=== PATIENT | female | born 1940 | race Caucasian/White ===

== ENCOUNTER 2019-08-27 10:13 | Outpatient (CLI) | payer MEDICARE, SELFPAY ==
--- NOTE | ~2019-08-27 | CT_ITS ---
EXAMINATION: CT abdomen pelvis wo/w con EXAM DATE: 08/27/2019 12:01 INDICATION: Gross hematuria. Frequency. TECHNIQUE: Spiral CT of the abdomen and pelvis was performed without contrast. The patient was then injected with small bolus intravenous Omnipaque 350, followed by delay of approximately 10 minutes to allow collecting system to opacify. A post contrast scan abdomen and pelvis was performed during inj ection of remaining contrast. A total of 130 cc intravenous contrast was administered. The dose-jaret th product (DLP) for this examination was 2321.47 mGy-cm. The exposure was tailored according to pat ient size (auto mA exposure control), and iterative reconstruction (ASIR) was used as additional dose reduction technique. There is no prior study for comparison. FINDINGS: There is mild bilateral renal atrophy. There is no hydronephrosis or nephrolithiasis. Scat tered subcentimeter homogeneous hypodense lesions likely cysts and hemorrhagic cysts. No suspicious r enal lesions. The kidneys enhance symmetrically. The calyces and opacified portions of ureters are unremarkable, without filling defects or focal suspicious strictures. The bladder is unremarkable. There is a 3.5 cm fibroid in the uterine fundus. There is hepatomegaly and nodular contour consistent with cirrhosis. There are multiple scattered [place] graphic shaped low density regions, many ill-defined scattered throughout the liver, could be regener ating nodules. These do not appear particularly masslike but liver MRI examination should be obtained for better characterization. There are perisplenic varices, indicating likelihood of portal hyperten eladio. Spleen, pancreas, adrenal glands are unremarkable. Patient has had cholecystectomy. Some bilia ry duct dilation which is common finding following cholecystectomy. There is no retroperitoneal or p elvic lymphadenopathy. There is moderate scattered arteriosclerotic disease. Patient has probably had appendectomy. Possible anterior abdominal wall hernia repair. The stomach a nd small bowel are unremarkable. There is expected amount of colonic stool. There is mild sigmoid co lonic diverticulosis. There is no adjacent inflammatory change to suggest diverticulitis. No free i ntraperitoneal gas. There is cardiomegaly and linear left basilar atelectasis. There are no osteobl astic or osteolytic lesions identified. There is advanced lower lumbar facet arthropathy. IMPRESSION: 1. Mild bilateral renal atrophy. Subcentimeter renal lesions likely cysts and hemorrhagic cysts. Fi broid. 2. Cirrhosis, portal hypertension. Liver regions probably regenerating nodules but consider better c haracterization with MRI examination. 3. Mild sigmoid diverticulosis. 4. Left basilar subsegmental atelectasis. 5. Cardiomegaly. 6. Surgical changes. Reviewed, dictated and finalized at location A. IMPRESSION: 1. Mild bilateral renal atrophy. Subcentimeter renal lesions likely cysts and hemorrhagic cysts. Fibroid. 2. Cirrhosis, portal hypertension. Liver regions probably regenerating nodules but consider better characterization with MRI examination. 3. Mild sigmoid diverticulosis. 4. Left basilar subsegmental atelectasis. 5. Cardiomegaly. 6. Surgical changes.
[2019-08-27 11:35] LABS: Estimated Glomerular Filt Rate > 60
== END 2019-08-27 10:14 | disposition home or self-care (01) ==
PROVIDERS: PCP Family Medicine
DX: N26.1 Atrophy of kidney (terminal) (principal); K74.60 Unspecified cirrhosis of liver; J98.11 Atelectasis; K57.90 Diverticulosis of intestine, part unspecified, without perforation or abscess without bleeding; I51.7 Cardiomegaly; R31.0 Gross hematuria; R35.0 Frequency of micturition
CPT/HCPCS: 36415; 74178; Q9967

== ENCOUNTER 2020-08-06 14:49 | Emergency (ER) | payer MEDICARE, BC, SELFPAY ==
--- NOTE | ~2020-08-06 | US_ITS ---
EXAMINATION: US venous doppler [facility] EXAM DATE: 08/06/2020 15:36 INDICATION: Left calf swelling. TECHNIQUE: Multiple grayscale, color flow and Doppler images of the left lower extremity deep venous system were obtained and reviewed. Comparison is made to prior examination from 04/24/2015. FINDINGS: The left common femoral, femoral and profunda veins demonstrate normal color flow, respirat ory variation, augmentation and compressibility. Compressibility, color flow confirmed within the le ft popliteal, posterior tibial, peroneal, and greater saphenous veins. IMPRESSION: 1. No left lower extremity deep venous thrombosis. Reviewed, dictated and finalized at location A.
[2020-08-06 14:59] VITALS: BP 123/96; PULSE 96; RESP 17; TEMP 36.1; O2SAT 96
[2020-08-06 15:12] LABS: Basophils Absolute Auto 0.1 K/mm3 (0.0-0.1); Basophils Percent Auto 0.5 % (0.2-1.2); Eosinophils Absolute Auto 0.3 K/mm3 (0-0.3); Eosinophils Percent Auto 2.5 % (0-4.4); Hematocrit 43.3 % (37.0-47.0); Hemoglobin 13.9 g/dL (12.0-15.0); Immature Granulocyte Absolute 0.11 K/mm3 (0.00-0.031); Immature Granulocyte Percent A 0.9 % (0-0.5); Lymphocytes Absolute Auto 2.78 K/mm3 (0.9-3.2); Lymphocytes Percent Auto 22.8 % (18.3-44.2); Mean Corpuscular HGB Conc 32.1 g/dl (32-36); Mean Corpuscular Hemoglobin 29.8 pg (26-34); Mean Corpuscular Volume 92.9 fl (80-100); Mean Platelet Volume 9.6 fl (7.4-10.4); Monocytes Absolute Auto 0.9 K/mm3 (0.1-0.6); Monocytes Percent Auto 7.2 % (2.6-8.5); Neutrophils Percent Auto 66.1 % (45.5-73.1); Platelet Count Result 327 k/mm3 (150-375); Red Blood Count 4.66 M/mm3 (4.2-5.4); Red Cell Distribution Width 13.4 % (11.5-14.5); White Blood Count 12.2 K/mm3 (4.5-10.0)
--- NOTE | 2020-08-06 15:13 | PC.NURSE ---
Pt to ultrasound.
[2020-08-06 15:24] LABS: Anion Gap 6 mmol/L (8-16); Blood Urea Nitrogen 19 mg/dL (7-17); Calcium 9.7 mg/dL (8.4-10.2); Carbon Dioxide 31 mmol/L (22-30); Chloride 102 mmol/L (98-107); Estimated CRCL calculation 52 ml/min; Estimated Glomerular Filt Rate 60; Glucose 164 mg/dL (65-105); Potassium 3.9 mmol/L (3.4-5.0); Sodium 139 mmol/L (137-145)
[2020-08-06 15:25] LABS: INR 2.1; Prothrombin Time 24.5 Seconds (11.1-14.7)
--- NOTE | 2020-08-06 15:45 | PC.NURSE ---
Dr. Trinh at bedside for pt assessment.
--- NOTE | 2020-08-06 15:50 | ED.EXTPRO ---
HPI - Extremity Problem General Chief complaint: Extremity Problem,Nontraumatic Stated complaint: left leg pain Time Seen by Provider: 08/06/20 15:19 Source: RN notes reviewed History of Present Illness HPI Narrative: Patient presents emergency department from home for left lower extremity swelling. Patient states she is been having swelling her left lower extremity and she goes to physical therapy and they recommended she follow-up to ensure that she not have a blood clot patient states her left leg is always more swollen than the right leg since having varicose vein surgery numerous years ago. She states she is supposed be wearing compression stockings daily but has a hard time getting them up and only has been wearing them intermittently she denies any fever chills chest pain shortness of breath or any other symptoms she denies any trauma or injury to the leg denies any calf pain she is on Coumadin for A. fib Related Data Home Medications Medication Instructions Recorded Confirmed cetirizine 10 mg tablet 5 mg PO DAILY PRN 02/21/19 diltiazem HCl 30 mg tablet 30 mg PO TID 02/21/19 metoprolol succinate 50 mg 75 mg PO DAILY tablet 02/21/19 tablet,extended release 24 hr omeprazole 40 mg capsule,delayed 40 mg PO DAILY 02/21/19 release tiotropium 2.5 mcg-olodaterol 2.5 2 puff INHALATION DAILY 02/21/19 mcg/actuation mist for inhalation warfarin 5 mg tablet 10 mg PO DAILY tablet 02/21/19 Allergies Allergy/AdvReac Type Severity Reaction Status Date / Time Penicillins Allergy Unknown Unknown Verified 08/06/20 15:13 metformin AdvReac Diarrhea Verified 08/06/20 15:13 Review of Systems Review of Systems: Narrative: Gen.: Denies fevers or chills Respiratory: Denies shortness of breath or cough CV: Denies chest pain or palpitations Musculoskeletal: Denies back pain reports leg swelling Neuro: Denies numbness, tingling, weakness or focal weakness Skin: Denies rash Except as documented, all other systems reviewed and negative PENDING SALE TO [facility] Past Medical History Medical History (Updated 08/06/20 @ 15:53 by Delmar Trinh, ) Adult BMI 36.0-36.9 kg/sq m Anxiety BMI 35.0-35.9,adult Essential hypertension Unspecified atrial fibrillation Family History Family History Mother Hypertension Family history of diabetes mellitus in first degree relative Family history of pancreatic cancer Acute myocardial infarction Sibling Family history of diabetes mellitus in first degree relative Acute myocardial infarction Grandparent Diabetes mellitus Social History Social History Smoking status: Never smoker Second hand tobacco smoke exposure: No Alcohol intake: never Substance use: never Substance use type: does not use Gender identity (if verbalized by the patient): Female Exam Narrative: Exam Narrative: APPEARANCE: No acute distress, nontoxic, resting in bed Eyes: EOMI HEENT: Normocephalic, atraumatic, RESPIRATORY: No respiratory distress MUSCULOSKELETAl: Left lower extremity has 3+ edema in the right lower extremity with 2+ edema there is no tenderness of the left knee or ankle full range of motion of both no calf tenderness dorsalis pedis pulse 2+ neurovascular intact NEURO: Awake and alert. Following commands, speech normal, no focal deficits SKIN:: Warm, dry. Normal Color no rash or lesions Course Course Emergency Course: Discussed with patient results of workup and diagnosis. Discussed need for follow-up with primary care, proper use of medication, and reasons to return to the emergency department. Patient understands and agrees to current treatment plan discussed with patient wearing compression stockings Vital Signs Vital signs: Vital Signs Temperature 97.0 F L 08/06/20 14:59 Pulse Rate 96 08/06/20 14:59 Respiratory Rate 08/06/20 14:59 Blood Pressure 123/96 H 08/06/20 14:59 Pulse Oxi
== END 2020-08-06 16:00 | disposition home or self-care (01) ==
PROVIDERS: Physician Assistant; Emergency Provider Emergency Medicine; PCP Family Medicine
DX: R60.0 Localized edema (principal); I10 Essential (primary) hypertension; I48.91 Unspecified atrial fibrillation; F41.9 Anxiety disorder, unspecified
CPT/HCPCS: 36415; 80048; 85025; 85610; 85730; 93971; 99284

== ENCOUNTER 2020-08-22 14:10 | Emergency (ER) | payer MEDICARE, BC, SELFPAY ==
--- NOTE | 2020-08-22 14:18 | ED.WOUNDLAC ---
HPI - Wound/Laceration General Chief Complaint: Wound/Laceration Stated Complaint: laceration Source: patient and RN notes reviewed Limitations: no limitations History of Present Illness HPI narrative: The patient, who is diabetic on several meds, presents with wound check. Patient states she believes she needs a tetanus shot for a skin avulsion which occurred yesterday. Patient's thinks her last tetanus shot was more than 10 years ago; and she had small avulsion/deep scrape on her left arm yesterday afternoon, on an unknown home furnishing. This resulted in a well approximated, small 2- 3 mm skin defect to her left elbow area. No redness, discharge, fever, bleeding [she is on Coumadin] Related Data Home Medications Medication Instructions Recorded Confirmed cetirizine 10 mg tablet 5 mg PO DAILY PRN 02/21/19 diltiazem HCl 30 mg tablet 30 mg PO TID 02/21/19 metoprolol succinate 50 mg 75 mg PO DAILY tablet 02/21/19 tablet,extended release 24 hr omeprazole 40 mg capsule,delayed 40 mg PO DAILY 02/21/19 release tiotropium-olodaterol [Stiolto 2.5 inh INHALATION DAILY 08/22/20 08/22/20 Respimat] warfarin 5 mg PO DAILY 08/22/20 08/22/20 Allergies Allergy/AdvReac Type Severity Reaction Status Date / Time Penicillins Allergy Mild Rash Verified 08/22/20 14:41 metformin AdvReac Intermediate Diarrhea Verified 08/22/20 14:41 Review of Systems Review of Systems: Narrative: General/Constitutional: No weight loss,fever Eyes: N0: Redness,discharge Ears/Nose/Throat: No: Epistaxis,ear discharge Respiratory: Denies: Hemoptysis Gastrointestinal: No Vomiting, Bleeding-rectal Skin: No Lumps, eruption Neurologic: No Focal Weakness,Sz Hematologic: Denies: Petechiae/Purpura Psychiatric: No: Suicida ideationl All Other Systems: Reviewed and Negative [facility] Past Medical History Medical History (Updated 08/22/20 @ 18:17 by Jono Jules MD) Adult BMI 36.0-36.9 kg/sq m Anxiety BMI 35.0-35.9,adult Essential hypertension Unspecified atrial fibrillation Family History Family History Mother Hypertension Family history of diabetes mellitus in first degree relative Family history of pancreatic cancer Acute myocardial infarction Sibling Family history of diabetes mellitus in first degree relative Acute myocardial infarction Grandparent Diabetes mellitus Social History Social History Smoking status: Never smoker Second hand tobacco smoke exposure: No Alcohol intake: never Substance use: never Substance use type: does not use Gender identity (if verbalized by the patient): Female Comments At time of signature, agree with nursing past medical, surgical, social and family history. There is no relevant family history pertinent to the presenting complaint Exam Narrative: Exam Narrative: General Appearance: Overweight/well nourished, Normocephalic, Conjunctiva clear Skin: Warm, Dry Ear: External ear normal Nose: Normal nose, Nare clear Mouth/Throat: Normal appearing Neck Exam: Supple Respiratory: Airway patent, No respiratory distress Musculoskeletal: Moves all extremities, Non tender Neurological: A&O x3 Psychiatric: Normal mood, Normal affect Course Vital Signs Vital signs: Vital Signs Temperature 97.7 F 08/22/20 14:23 Pulse Rate 85 08/22/20 14:23 Respiratory Rate 20 08/22/20 14:23 Blood Pressure 101/81 08/22/20 14:23 Pulse Oximetry 97 08/22/20 14:23 Temperature 97.7 F 08/22/20 14:23 Pulse Rate 85 08/22/20 14:23 Respiratory Rate 20 08/22/20 14:23 Blood Pressure 101/81 08/22/20 14:23 Pulse Oximetry 97 08/22/20 14:23 Discharge Plan Discharge Clinical Impression: Hx of avulsion, Encounter for post-traumatic wound check Patient Disposition: Home, Self-Care Condition: Stable Instructions: Skin Avulsion (ED) Prescription
[2020-08-22 14:23] VITALS: BP 101/81; PULSE 85; RESP 20; TEMP 36.5; O2SAT 97
[2020-08-22] MEDS: TETANUS,DIPHTHERIA,AC PERTUSSIS ADULT (0.5 ML) BOOSTRIX IM (14:36)
== END 2020-08-22 14:58 | disposition home or self-care (01) ==
PROVIDERS: Emergency Provider Emergency Medicine; PCP Family Medicine
DX: S51.802A Unspecified open wound of left forearm, initial encounter (principal); X58.XXXA Exposure to other specified factors, initial encounter; Z23 Encounter for immunization; I10 Essential (primary) hypertension; I48.91 Unspecified atrial fibrillation; F41.9 Anxiety disorder, unspecified; Z79.01 Long term (current) use of anticoagulants
CPT/HCPCS: 90471; 90715; 99213; G0463

== ENCOUNTER → 2021-05-28 15:32 | Outpatient (CLI) | payer MEDICARE, SELFPAY ==
--- NOTE | ~2021-05-28 | DEXA_ITS ---
Bone Density Report Name: KANWAL BETH Age: 81 Sex: Female Ethnicity: White Date of : 1940 Indication: postmenopausal; screening for osteoporosis; height loss; asthma or emphysema; Referring Provider: ZEE BYRD Study: Bone densitometry was performed. Exam Date: May 28, 2021 Accession number: [id number] Bone Density: Region BMD T-score Z-score Classification AP Spine (L1-L4) 1.157 1.0 3.7 Normal Femoral Neck (Left) 0.966 1.1 3.4 Normal Total Hip (Left) 1.238 2.4 4.5 Normal Femoral Neck (Right) 0.964 1.0 3.4 Normal Total Hip (Right) 1.143 1.7 3.7 Normal Total Hip Mean 1.191 2.1 4.1 Normal World Health Organization criteria for BMD impression classify patients as: Normal (T-score at or above -1.0), Osteopenia (T-score between -1.0 and -2.5), or Osteoporosis (T-score at or below -2.5). 10-year Fracture Risk: FRAX not reported because: All T-scores for Spine Total, Hip Total, Femoral Neck at or above -1.0 Previous Exams: Region Exam Age BMD T-score BMD Change BMD Change Date g/cm2 vs Baseline vs Previous AP Spine(L1-L4) 05/28/2021 81 1.157 1.0 0.128* 0.128* 03/04/2006 66 1.029 -0.2 Total Hip(Left) 05/28/2021 81 1.238 2.4 0.058* 0.058* 03/04/2006 66 1.180 2.0 Total Hip(Right) 05/28/2021 81 1.143 1.7 0.015 0.015 03/04/2006 66 1.129 1.5 *Denotes significance at 95% confidence level, LSC for AP Spine = 0.022 g/cm2, LSC for Total Hip = 0.027 g/cm2 Clinical Information Provided by Patient: Has used the following medications: Vitamin D Has the following medical conditions: Asthma or Emphysema Patient maximum height was 66 Menopause Age: 46 No regular weight bearing exercise Does not regularly consume dairy products Drinks caffeinated beverages Onset of menses at age 11 Number of children 3 Impression: The patient has normal bone mass. No significant bone loss was observed. Discussion: LOW RISK OF FRACTURE; BONE DENSITY IS WELL ABOVE THE MINIMUM DESIRABLE LEVEL AND ABOVE AVERAGE FOR AGE AND SEX AT ALL SKELETAL SITES TESTED. This person's bone density is above expected limits for age and sex. This is rarely clinically significant, but should be pursued if there are significant musculoskeletal complaints. The patient should follow a healthful lifestyle (good nutrition with adequate calcium and vitamin D, and appropriate weight-bearing exercise).
== END ==
DX: Z78.0 Asymptomatic menopausal state (principal)
CPT/HCPCS: 77080

== ENCOUNTER 2022-04-02 19:17 | Emergency (ER) | payer MEDICARE, BC, SELFPAY ==
--- NOTE | ~2022-04-02 | XR_ITS ---
EXAMINATION: XR chest 2V Exam Date/Time: 04/02/2022 20:18 [employer] HISTORY: COUGH SOB. DAUGHTER POPPED COVID+ OVER THE WEEKENED. Comparison: 03/25/2016. RESULT: Lines, tubes, and devices: None. Lungs and pleura: Senescent changes. Calcified left lung granuloma. Cardiomediastinal silhouette: Stable cardiomegaly. Calcified left hilar nodes. Other: No acute osseous or upper abdominal finding. IMPRESSION: No acute cardiopulmonary process. Reviewed, dictated and finalized at location K. [employer]
[2022-04-02 19:22] VITALS: BP 146/77; PULSE 115; RESP 24; TEMP 36; O2SAT 98
--- NOTE | 2022-04-02 19:25 | ECG_ITS ---
Measurements Intervals [place] Rate: 105 P: IN: 0 QRS: -1 QRSD: 91 T: 41 QT: 341 QTc: 451 Interpretive Statements ATRIAL FIBRILLATION WITH RAPID VENTRICULAR RESPONSE DELAYED PRECORDIAL R/S TRANSITION BASELINE ARTIFACT- I, II, III, AVR, AVL, AVF ABNORMAL ECG NO PREVIOUS ECG AVAILABLE FOR COMPARISON Electronically Signed On 04-02-2022 20:11:25 FIT MODEL by Bruon Whittaker D.O.
[2022-04-02 20:30] LABS: Alanine Aminotransferase 30 U/L (6-35); Albumin Level 3.7 g/dL (3.5-5.1); Alkaline Phosphatase 69 U/L (38-126); Anion Gap 4 mmol/L (8-16); Aspartate Amino Transferase 56 U/L (14-36); Bilirubin,Total 0.3 mg/dL (0.2-1.3); Blood Urea Nitrogen 14 mg/dL (7-17); Calcium 8.6 mg/dL (8.4-10.2); Carbon Dioxide 31 mmol/L (22-30); Chloride 103 mmol/L (98-107); Estimated CRCL calculation 48 ml/min; Estimated Glomerular Filt Rate 53; Glucose 154 mg/dL (65-110); Potassium 3.7 mmol/L (3.4-5.0); Sodium 138 mmol/L (137-145)
[2022-04-02 20:44] LABS: Basophils Percent Auto 0.5 % (0.2-1.2); Eosinophils Absolute Auto 0.2 K/mm3 (0-0.3); Eosinophils Percent Auto 2.3 % (0-4.4); Hematocrit 38.4 % (37.0-47.0); Hemoglobin 12.3 g/dL (12.0-15.0); Immature Granulocyte Absolute 0.06 K/mm3 (0.00-0.031); Immature Granulocyte Percent A 0.9 % (0-0.5); Lymphocytes Absolute Auto 0.88 K/mm3 (0.9-3.2); Lymphocytes Percent Auto 13.3 % (18.3-44.2); Mean Corpuscular Hemoglobin 31.1 pg (26-34); Mean Corpuscular Volume 97.2 fl (80-100); Mean Platelet Volume 9.7 fl (7.4-10.4); Monocytes Absolute Auto 0.6 K/mm3 (0.1-0.6); Monocytes Percent Auto 9.4 % (2.6-8.5); Neutrophils Absolute Auto 4.9 K/mm3 (1.3-6.7); Neutrophils Percent Auto 73.6 % (45.5-73.1); Platelet Count Result 288 k/mm3 (150-375); Red Blood Count 3.95 M/mm3 (4.2-5.4); Red Cell Distribution Width 14.1 % (11.5-14.5); White Blood Count 6.6 K/mm3 (4.5-10.0)
[2022-04-02 21:21] LABS: Influenza A QL RT-PCR Negative (Negative); Influenza B QL RT-PCR Negative (Negative); SARS-CoV-2 RNA PCR Positive
[2022-04-02] MEDS: LACTATED RINGERS 1,000 ML 999 ML IV CONT (21:35)
[2022-04-02] MEDS: guaiFENesin/DEXTROMETHORPHAN 10 ML UDC PO (22:42)
--- NOTE | 2022-04-03 07:05 | ED.SOB ---
HPI - SOB/Dyspnea General Chief Complaint: Shortness of Breath/Dyspnea Stated Complaint: SOB, cough Time Seen by Provider: 04/02/22 20:45 History of Present Illness HPI Narrative: Patient presents with mild cough for the last few days, her daughter just called her and saw her she tested positive for COVID. She denies any nausea vomiting or diarrhea, chest pain. She is vaccinated and boosted. Related Data Home Medications Medication Instructions Recorded Confirmed cetirizine 10 mg tablet (Zyrtec) 5 mg PO DAILY 02/21/19 08/22/20 diltiazem HCl 30 mg tablet 30 mg PO TID 02/21/19 08/22/20 metoprolol succinate 50 mg 75 mg PO DAILY 02/21/19 08/22/20 tablet,extended release 24 hr omeprazole 40 mg capsule,delayed 40 mg PO DAILY 02/21/19 08/22/20 release tiotropium 2.5 mcg-olodaterol 2.5 2.5 inh inhalation DAILY 08/22/20 08/22/20 mcg/actuation mist for inhalation (Stiolto Respimat) warfarin 5 mg tablet 5 mg PO DAILY 08/22/20 08/22/20 Allergies Allergy/AdvReac Type Severity Reaction Status Date / Time Penicillins Allergy Mild Rash Verified 08/22/20 14:41 metformin AdvReac Intermediate Diarrhea Verified 08/22/20 14:41 Review of Systems Review of Systems: CONST: No fever. HEENT: No sore throat C/V: No chest pain RESP: cough GI: No abdominal pain, nausea, vomiting[, diarrhea] : No dysuria. M/S: No joint pain. SKIN: No rash. NEURO: [No headache or focal numbness or weakness] PSYCH: [No depression] [facility] Past Medical History Medical History Adult BMI 36.0-36.9 kg/sq m Anxiety BMI 35.0-35.9,adult Essential hypertension Unspecified atrial fibrillation Family History Family History Mother Hypertension Family history of diabetes mellitus in first degree relative Family history of pancreatic cancer Acute myocardial infarction Sibling Family history of diabetes mellitus in first degree relative Acute myocardial infarction Grandparent Diabetes mellitus Social History Social History Smoking status: Never smoker Second hand tobacco smoke exposure: No Alcohol intake: never Substance use: never Substance use type: does not use Gender identity (if verbalized by the patient): Female Exam Narrative: EXAMINATION OF ORGAN SYSTEMS/BODY AREAS: Constitutional: Vital signs per nursing GENERAL:[No acute distress, non-toxic appearing.] HEAD: Normal with no signs of head trauma. EYES: EOMI, conjunctiva normal ENT: Hearing grossly intact LUNGS: Nonlabored breathing. HEART: Tachycardic ABD: [Soft], [nontender to palpation] EXT: Normal range of motion SKIN: [No rashes or lesions.] NEURO: [Alert and oriented x 3. No gross focal sensory or strength deficits.] PSYCH: Normal affect Course Vital Signs Vital signs: Vital Signs Temperature 96.8 F L 04/02/22 19:22 Pulse Rate 115 H 04/02/22 19:22 Respiratory Rate 24 H 04/02/22 19:22 Blood Pressure 146/77 H 04/02/22 19:22 Pulse Oximetry 98 04/02/22 19:22 Oxygen Delivery Room Air 04/02/22 19:22 Temperature 96.8 F L 04/02/22 19:22 Pulse Rate 115 H 04/02/22 19:22 Respiratory Rate 24 H 04/02/22 19:22 Blood Pressure 146/77 H 04/02/22 19:22 Pulse Oximetry 98 04/02/22 19:22 Oxygen Delivery Room Air 04/02/22 19:22 MDM - SOB/Dyspnea MDM Narrative Medical decision making narrative: ED COURSE AND MEDICAL DECISION MAKING: This 82year old patient presents with symptoms most suggestive of viral upper respiratory tract infection. Lungs are clear bilaterally without any respiratory distress or accessory muscle use. Given her tachycardia and age, I will obtain basic work-up and start her on IV fluids, I am concerned about COVID. Patient is treated symptomatically with IV fluids, cough medicine. On reevaluation, she is improved, heart rate improved to 85, respiratory rate 18
== END 2022-04-02 23:18 | disposition home or self-care (01) ==
PROVIDERS: Emergency Provider Emergency Medicine; PCP Family Medicine
DX: U07.1 COVID-19 (principal); I10 Essential (primary) hypertension; I48.91 Unspecified atrial fibrillation; Z79.01 Long term (current) use of anticoagulants
CPT/HCPCS: 36415; 71046; 80053; 85025; 87636; 93005; 96360; 99284; A9270; J7120